=== PATIENT | female | born 2000 | race Caucasian/White ===

== ENCOUNTER 2022-01-28 00:33 | Emergency (ER) | payer OTHER ==
[~2022-01-28] VITALS: Ht 175.3 cm; Wt 59.0 kg
[2022-01-28 00:45] VITALS: BP 132/97
--- NOTE | 2022-01-28 00:48 | NUR ---
PT AMBULATORY TO LOBBY TO A/W BED. URINE SPECIMEN PROVIDED.
--- NOTE | 2022-01-28 01:37 | NUR ---
PT AMBULATED TO BED #1
--- NOTE | 2022-01-28 01:55 | NUR ---
er md at bedside examining pt
[2022-01-28] MEDS ORDERED: diazePAM 5 MG TAB PO ONE (02:05)
[2022-01-28] MEDS ORDERED: KETOROLAC 30 MG/ML VIAL IM ONE (02:05)
--- NOTE | 2022-01-28 02:08 | NUR ---
21 Y/O FEMALE BIBS FROM HOME, C/O HEADACHE WITH NAUSEAX2-3 DAYS. PATIENT PRESENTS TO ED WITH PAIN THAT STARTS IN HER HAND AND RADIATES TO HER CHEST. PT STATES HER HEADACHE IS 5/10 AND CAUSES BLURRED VISION, DESCRIBED PRESSURE IN THE BACK OF HER HEAD. DENIES N/V/D; SKIN IS PINK/WARM/DRY; AAOX4 WITH EVEN AND STEADY GAIT; LUNGS CLEAR BL; HR EVEN AND REGULAR; PT DENIES ANY FEVER, CP, SOB, OR COUGH AT THIS TIME; PATIENT STATES PAIN OF 5/10 AT THIS TIME; VSS; PATIENT POSITIONED FOR COMFORT; HOB ELEVATED; BEDRAILS UP X2; BED DOWN. ER MD MADE AWARE OF PT STATUS. NEGATIVE STROKE SCALE PERFORMED BY MD AT BEDSIDE. SELF MEDIATED WITH ASPRIN AT 1100. MEDHX- DENIES ALLX- AMOXICILLIN
[2022-01-28 02:15] LABS: BASOPHILS # (AUTO) 0.1 K/uL (0.00-0.22); BASOPHILS % (AUTO) 0.8 % (0.0-2.0); EOSINOPHILS # (AUTO) 0.1 K/uL (0-0.4); HEMATOCRIT 44.4 % (36-48); HEMOGLOBIN 14.9 g/dL (12.0-16.0); LYMPHOCYTES # (AUTO) 1.4 K/uL (2.5-16.5); LYMPHOCYTES % (AUTO) 17.9 % (20.5-51.1); MEAN CORPUSCULAR HEMOGLOBIN 32 pg (27-31); MEAN CORPUSCULAR HGB CONC 34 g/dL (33-37); MONOCYTES # (AUTO) 0.9 K/uL (0.8-1.0); MONOCYTES % (AUTO) 11.2 % (1.7-9.3); NEUTROPHILS # (AUTO) 5.5 K/uL (1.8-7.7); NEUTROPHILS % (AUTO) 69.1 % (42.2-75.2); PLATELET COUNT (AUTO) 213 K/uL (140-450); RED BLOOD CELL COUNT(AUTO) 4.68 MIL/uL (4.20-5.40); RED CELL DISTRIBUTION WIDTH 13.3 % (11.6-13.7)
--- NOTE | 2022-01-28 02:19 | NUR ---
PT TAKEN TO CT
[2022-01-28 02:38] LABS: ANION GAP 12.6 (8-16); CARBON DIOXIDE 25.3 mmol/L (21-32); CREATININE 0.7 mg/dL (0.6-1.3); POTASSIUM 3.9 mmol/L (3.5-5.1)
[2022-01-28] MEDS ORDERED: NAPR-54 PO (03:35)
[2022-01-28 03:57] VITALS: BP 126/90
--- NOTE | 2022-01-28 03:58 | NUR ---
Patient discharged with v/s stable. Written and verbal after care instructions given and explained. Patient alert, oriented and verbalized understanding of instructions. Ambulatory with steady gait. All questions addressed prior to discharge. ID band removed. Patient advised to follow up with PMD. Rx of NAPROSYN given. Patient educated on indication of medication including possible reaction and side effects. Opportunity to ask questions provided and answered. VSS, A/OX4, UNLABORED BREATHING, AMBULATORY, AND CALM DEMEANOR.
== END 2022-01-28 03:57 | disposition home or self-care (01) ==
LOC: MED 00:33
DX: R51.9 Headache, unspecified (principal); R20.2 Paresthesia of skin; Z98.890 Other specified postprocedural states; Z79.1 Long term (current) use of non-steroidal anti-inflammatories (NSAID); Z88.0 Allergy status to penicillin
CPT/HCPCS: 36415; 70450; 80048; 81002; 81025; 85025; 96372; 99284; J1885

== ENCOUNTER 2022-05-19 21:05 | Emergency (ER) | payer OTHER ==
[~2022-05-19] VITALS: Ht 175.3 cm; Wt 57.2 kg
[~2022-05-19 21:05] MED LIST: NAPR-54 PO
[2022-05-19 21:11] VITALS: BP 133/80
--- NOTE | 2022-05-19 21:16 | NUR ---
TO LOBBY FOLLOWING TRIAGE
--- NOTE | 2022-05-19 23:15 | NUR ---
TO BED AMBUALTORY
--- NOTE | 2022-05-20 00:38 | NUR ---
Dr. Godinez at bedside for MSE
[2022-05-20] MEDS ORDERED: KETOROLAC 30 MG/ML VIAL IM ONE (01:25)
[2022-05-20 02:18] VITALS: BP 126/69
--- NOTE | 2022-05-20 04:28 | NUR ---
UPDATED PT ON PENDING RESULTS. PT HAS NO C/O PAIN AT THIS TIME.
[2022-05-20] MEDS ORDERED: [UNRECOGNIZED DRUG - CODE] PO (05:06)
--- NOTE | 2022-05-20 05:12 | NUR ---
Patient discharged with v/s stable. Written and verbal after care instructions given and explained. Patient alert, oriented and verbalized understanding of instructions. Ambulatory with steady gait. All questions addressed prior to discharge. ID band removed. Patient advised to follow up with PMD. Rx of ASPIRIN/TYLENOL/CAFFEFINE TABLET given. Patient educated on indication of medication including possible reaction and side effects. Opportunity to ask questions provided and answered.
== END 2022-05-20 05:12 | disposition home or self-care (01) ==
LOC: MED 21:05
DX: G43.909 Migraine, unspecified, not intractable, without status migrainosus (principal)
CPT/HCPCS: 70450; 81002; 81025; 96372; 99284; J1885